=== PATIENT | male | born 1970 | race African-American/Black ===

== ENCOUNTER 2016-11-17 09:28 | Emergency (ER) | payer OTHER ==
[~2016-11-17] VITALS: Ht 180.3 cm; Wt 77.2 kg
[~2016-11-17 09:28] MED LIST: AUGMENTIN875 MG PO; CYMBALTA30 MG PO; CYMBALTA60 MG PO; DIAZEPAM5 MG PO; LYRICA200 MG PO; LYRICA25 MG PO; METHOCARBAMOL750 MG PO; NAPROSYN500 MG PO; NOHOMEMEDS; OPANA ER7.5 MG PO; OXYCODONE HCL5 MG PO; OXYCODONE-APAP1 EAC6 PO; PEN-VEE K,VEET500 MG PO; ROBAXIN500 MG PO; ROBITUSSIN AC,T10 ML PO; ZITHROMAX Z-PA250 MG PO
[2016-11-17 10:34] LABS: INFLUENZA A VIRAL ANTIGEN POSITIVE; INFLUENZA B VIRAL ANTIGEN NEGATIVE
[2016-11-17] MEDS ORDERED: TAMIFLU75 MG PO (10:51)
[2016-11-17 11:04] VITALS: BP 125/75
== END 2016-11-17 11:05 | disposition home or self-care (01) ==
LOC: EME 09:28
PROVIDERS: Emergency Medicine
DX: J10.1 Influenza due to other identified influenza virus with other respiratory manifestations (principal); F17.200 Nicotine dependence, unspecified, uncomplicated; G89.29 Other chronic pain; Z79.891 Long term (current) use of opiate analgesic
CPT/HCPCS: 71020; 87502; 94640; 99281; 99282